=== PATIENT | male | born 1950 | race Caucasian/White ===

== ENCOUNTER 2024-02-15 07:16 | Day surgery (SDC) | payer MEDICARE, OTHER ==
[2024-02-15] MEDS ORDERED: PROPOFOL 200 MG/20 ML BOTTLE ONE (09:20)
[2024-02-15] MEDS: SUCRALFATE 1 G/10 ML LIQUID UDC PO STA (11:02)
[2024-02-15 11:30] VITALS: TEMP 97.6
== END 2024-02-15 11:40 | disposition home or self-care (01) ==
LOC: DS 07:16
PROVIDERS: ATTEND Surgery
DX: D64.9 Anemia, unspecified (principal); K21.00 Gastro-esophageal reflux disease with esophagitis, without bleeding; K22.10 Ulcer of esophagus without bleeding; K25.9 Gastric ulcer, unspecified as acute or chronic, without hemorrhage or perforation; K57.30 Diverticulosis of large intestine without perforation or abscess without bleeding; K29.70 Gastritis, unspecified, without bleeding; K44.9 Diaphragmatic hernia without obstruction or gangrene; K58.9 Irritable bowel syndrome, unspecified; K64.4 Residual hemorrhoidal skin tags; R19.4 Change in bowel habit; I10 Essential (primary) hypertension; N40.0 Benign prostatic hyperplasia without lower urinary tract symptoms; M19.90 Unspecified osteoarthritis, unspecified site; F32.9 Major depressive disorder, single episode, unspecified; Z79.899 Other long term (current) drug therapy; Z98.890 Other specified postprocedural states
CPT/HCPCS: 43239; 45380; 71045; 88305; 88313; 88342; J3490; J7120; A4663